=== PATIENT | male | born 1955 | race Caucasian/White ===

== ENCOUNTER → 2018-04-01 | Outpatient (CLI) | payer OTHER ==
[~2018-04-01] MED LIST: LIDOCAINE-MPF 2%, 2ML ONE
== END | disposition home or self-care (01) ==
LOC: RAD 08:50
PROVIDERS: ATTEND Family Medicine
DX: E04.2 Nontoxic multinodular goiter (principal)
CPT/HCPCS: 76942; 88172; 88173; J3490

== ENCOUNTER → 2018-04-15 | Outpatient (CLI) | payer OTHER ==
[~2018-04-15] MED LIST changes: +ASCO-96 PO; +HYDR-3240 PO; +LEVO150T PO; -LIDOCAINE-MPF 2%, 2ML ONE; +MULT-658 PO; +TADA5TAB2 PO
== END | disposition home or self-care (01) ==
LOC: STAR 13:12
PROVIDERS: ATTEND Surgery
DX: R94.31 Abnormal electrocardiogram [ECG] [EKG] (principal)
CPT/HCPCS: 93005

== ENCOUNTER 2018-04-19 07:27 | Inpatient (IN) | payer OTHER ==
[~2018-04-19] VITALS: Ht 190.5 cm; Wt 80.7 kg
[~2018-04-19 07:27] MED LIST changes: +BUPIVACAINE/PF-EPI 0.5% 1:200K ONE; -HYDR-3240 PO; -LEVO150T PO
[2018-04-19] MEDS ORDERED: LACTATED RINGERS 1,000 ML IV SCH ×2 (08:15→08:29)
[2018-04-19] MEDS ORDERED: ACETAMINOPHEN 500 MG TABLET PO ONE (08:30)
[2018-04-19] MEDS ORDERED: ONDANSETRON ODT 8 MG PO ONE (08:30)
[2018-04-19] MEDS ORDERED: GABAPENTIN 300 MG CAPSULE PO ONE (08:30)
[2018-04-19 08:34] VITALS: BP 130/87
[2018-04-19] MEDS ORDERED: FENTANYL PF 250 MCG/5ML ONE (10:52)
[2018-04-19] MEDS ORDERED: MIDAZOLAM 1 MG/ML, 2ML ONE (10:52)
[2018-04-19] MEDS ORDERED: ROCURONIUM 10 MG/ML,10ML ONE (11:30)
[2018-04-19] MEDS ORDERED: PHENYLEPHRINE 10 MG/ML ONE (11:30)
[2018-04-19] MEDS ORDERED: CEFAZOLIN 1,000 MG ONE ×2 (11:30→12:14)
[2018-04-19] MEDS ORDERED: DEXAMETHASONE 4 MG/ML, 1ML ONE (12:14)
[2018-04-19] MEDS ORDERED: SUCCINYLCHOLINE 20 MG/ML, 10ML ONE (12:14)
[2018-04-19] MEDS ORDERED: PROPOFOL 10 MG/ML, 20ML ONE (12:14)
[2018-04-19] MEDS ORDERED: LIDOCAINE-MPF 2% ,5ML ONE (12:14)
[2018-04-19] MEDS ORDERED: PROMETHAZINE 12.5 MG SUPP PR PRN (12:30)
[2018-04-19] MEDS ORDERED: ONDANSETRON 2MG/ML, 2ML IV PRN (12:30)
[2018-04-19] MEDS ORDERED: OXYcodone 5 MG/5 ML ORAL.SOL UDC PO PRN (12:30)
[2018-04-19] MEDS ORDERED: EPHEDRINE 50 MG/ML, 1ML IM PRN (12:30)
[2018-04-19] MEDS ORDERED: SCOPOLAMINE PATCH, 1.5MG PATCH.TD72 TD PRN (12:30)
[2018-04-19] MEDS ORDERED: MIDAZOLAM 1 MG/ML, 2ML IV PRN (12:30)
[2018-04-19] MEDS ORDERED: ALBUTEROL/IPRATROPIUM 2.5MG/0.5MG, 3 ML NPPB PRN (12:30)
[2018-04-19] MEDS ORDERED: LABETALOL 5MG/ML, 20ML IV PRN (12:30)
[2018-04-19] MEDS ORDERED: MEPERIDINE/PF 25MG/0.5ML IVPush PRN (12:30)
[2018-04-19] MEDS ORDERED: EPHEDRINE 50 MG/ML, 1ML ONE (12:41)
[2018-04-19] MEDS ORDERED: LABETALOL 5MG/ML, 20ML ONE (13:45)
[2018-04-19] MEDS ORDERED: OXYcodone 5 MG/5 ML ORAL.SOL UDC ONE (14:38)
[2018-04-19] MEDS ORDERED: FENTANYL PF 100 MCG/2ML ONE (14:38)
[2018-04-19] MEDS: FENTANYL PF 100 MCG/2ML IV PRN ×4 (14:40→15:00)
[2018-04-19] MEDS ORDERED: HYDROmorphone 2 MG/ML, 1ML ONE (14:52)
[2018-04-19] MEDS: HYDROmorphone 1 MG/ML, 1ML IV PRN ×4 (15:05→15:23)
[2018-04-19 15:55] VITALS: BP 123/88
[2018-04-19] MEDS: LACTATED RINGERS 1,000 ML IV SCH ×2 (16:30→23:13)
[2018-04-19] MEDS ORDERED: hydrALAzine 20 MG/ML, 1ML IV PRN (16:30)
[2018-04-19] MEDS ORDERED: ACETAMINOPHEN 650 MG SUPP PR PRN (16:30)
[2018-04-19] MEDS ORDERED: ACETAMINOPHEN 325 MG TABLET PO PRN (16:30)
[2018-04-19 19:00] VITALS: BP 125/66
[2018-04-19] MEDS: CALCIUM/VITAMIN D3 250-125 TABLET PO SCH (21:11)
[2018-04-20 00:02] VITALS: BP 109/72
[2018-04-20 04:08] VITALS: BP 111/70
[2018-04-20 05:11] LABS: CALCIUM 8.1 mg/dL (8.5-10.1)
[2018-04-20] MEDS: HYDROcodone/APAP 5/325 TABLET PO PRN ×2 (06:15→10:07)
[2018-04-20 06:48] VITALS: BP 123/73
[2018-04-20] MEDS: CALCIUM/VITAMIN D3 250-125 TABLET PO SCH (08:16)
[2018-04-20] MEDS ORDERED: TADALAFIL 5 MG HOMEMEDPO SCH (09:00)
[2018-04-20] MEDS ORDERED: HYDR-3240 PO (09:44)
[2018-04-20] MEDS ORDERED: LEVO150T PO (09:45)
== END 2018-04-20 10:45 | disposition home or self-care (01) | DRG 627 ==
LOC: OUT 07:27 → 4NOR 15:49 → OUT 16:08
PROVIDERS: ADMIT Surgery; ATTEND Surgery
PROC: 0GTH0ZZ Resection of Right Thyroid Gland Lobe, Open Approach (ICD-10-PCS; 2018-04-19)
PROC: 0GTG0ZZ Resection of Left Thyroid Gland Lobe, Open Approach (ICD-10-PCS; 2018-04-19)
PROC: 0GSP0ZZ Reposition Left Inferior Parathyroid Gland, Open Approach (ICD-10-PCS; 2018-04-19)
PROC: 07T10ZZ Resection of Right Neck Lymphatic, Open Approach (ICD-10-PCS; 2018-04-19)
PROC: 0GTJ0ZZ Resection of Thyroid Gland Isthmus, Open Approach (ICD-10-PCS; principal; 2018-04-19 11:45)
DX: C73 Malignant neoplasm of thyroid gland (principal)
CPT/HCPCS: 36415; 82310; 83970; 86850; 86900; 88305; 88307; 88331; J0690; J1100; J1170; J2250; J2704; J3010; J3490; Q0162; C1760; J0330; J2370; J7120

== ENCOUNTER → 2018-06-02 | Outpatient (CLI) | payer OTHER ==
[~2018-06-02] MED LIST changes: -BUPIVACAINE/PF-EPI 0.5% 1:200K ONE; +HYDR-3240 PO; +LEVO150T PO
== END | disposition home or self-care (01) ==
LOC: RAD 15:06
PROVIDERS: ATTEND Internal Medicine Endocrinology, Diabetes & Metabolism
DX: Q32.1 Other congenital malformations of trachea (principal); M79.89 Other specified soft tissue disorders
CPT/HCPCS: 70490

== ENCOUNTER → 2018-06-10 | Outpatient (CLI) | payer OTHER | END | disposition home or self-care (01) | LOC: PETCFH 11:26 | PROVIDERS: ATTEND Surgery | DX: C79.51 Secondary malignant neoplasm of bone (principal); C73 Malignant neoplasm of thyroid gland; E04.2 Nontoxic multinodular goiter | CPT/HCPCS: 78815; A9552 ==

== ENCOUNTER 2018-10-04 15:43 | Inpatient (IN) | payer OTHER ==
[~2018-10-04] VITALS: Ht 190.5 cm; Wt 83.5 kg
[~2018-10-04 15:43] MED LIST changes: -OMNIPAQUE 350 MG/ML, 150 ML BOTTLE ONE
--- NOTE | 2018-10-04 15:50 | NUR ---
PT IS HYPOTENSIVE, DR HENNESSY NOTIFIED. FLUIDS STARTED
[2018-10-04] MEDS ORDERED: ONDANSETRON 2MG/ML, 2ML ONE (16:15)
[2018-10-04 16:26] LABS: MEAN CORPUSCULAR HEMOGLOBIN 29.5 pg (27.5-34.5); MEAN CORPUSCULAR HGB CONC 33.4 g/dL (33.2-36.2); MEAN CORPUSCULAR VOLUME 88.4 fL (81-97); MEAN PLATELET VOLUME 7.7 fL (7.4-10.4); PLATELET COUNT 136 x10^3/uL (130-400); RED BLOOD COUNT 4.46 x10^6/uL (4.38-5.82); RED CELL DISTRIBUTION WIDTH 15.6 % (9.4-14.8)
[2018-10-04] MEDS ORDERED: SODIUM CHLORIDE FLUSH 10ML SYR IVF ONE (16:30)
[2018-10-04] MEDS ORDERED: ONDANSETRON 2MG/ML, 2ML IVPush ONE (16:30)
[2018-10-04] MEDS ORDERED: SODIUM CHLORIDE 0.9% 1,000ML IVBOLUS ONE ×3 (16:30→19:00)
[2018-10-04 16:39] LABS: ALANINE AMINOTRANSFERASE 18 U/L (12-78); ALBUMIN 2.9 g/dL (3.4-5.0); ANION GAP 10 mmol/L (5-15); CALCIUM 7.6 mg/dL (8.5-10.1); CHLORIDE 105 mmol/L (98-107); CREATININE 1.47 mg/dL (0.7-1.3)
[2018-10-04 16:41] LABS: ALKALINE PHOSPHATASE 66 U/L (45-117); BILIRUBIN,TOTAL 0.8 mg/dL (0.2-1.0); TOTAL PROTEIN 5.8 g/dL (6.4-8.2)
[2018-10-04 16:58] LABS: MD YES
[2018-10-04] MEDS ORDERED: CEFTRIAXONE PMX 1GM/50ML 50 ML IVPB ONE (17:00)
[2018-10-04 17:02] LABS: ANISOCYTOSIS 1+; BANDS%(MANUAL) 20 % (0-7); MONOS#(MANUAL) 0.06 x10^3/uL (0.3-2.7); MONOS% (MANUAL) 2 % (2-9); SEG#(MANUAL) 2.34 x10^3/uL (1.8-6.8); SEGS% (MANUAL) 78 % (42-75)
[2018-10-04 17:03] LABS: <PLATELET ESTIMATE> ADEQUATE; LARGE PLATELETS 1+; PMNS WITH VACUOLES 1+
[2018-10-04] MEDS ORDERED: CEFTRIAXONE PMX 1GM/50ML 50 ML ONE (17:17)
--- NOTE | 2018-10-04 17:24 | NUR ---
ABX STARTED AFTER BLOOD CULTURES DRAWN
--- NOTE | 2018-10-04 17:25 | NUR ---
PT NOTIFIED THAT WE NEED A URINE SAMPLE. PT UNABLE TO VOID ATT.
--- NOTE | 2018-10-04 17:41 | NUR ---
DR HENNESSY AT BEDSIDE UPDATING PT ON POC
[2018-10-04] MEDS ORDERED: SODIUM CHLORIDE 0.9% 1,000 ML IV ONE (18:02)
[2018-10-04] MEDS ORDERED: NOREPINEPHRINE 4 MG in SODIUM CHLORIDE 0.9% 246 ML IV PRN (18:53)
[2018-10-04] MEDS ORDERED: ACETAMINOPHEN 650 MG SUPP PR PRN (19:00)
[2018-10-04] MEDS ORDERED: SODIUM CHLORIDE 0.9%, 500ML IVBOLUS PRN (19:00)
[2018-10-04] MEDS ORDERED: HYDROCORTISONE 100 MG INJ. IVPush ONE (19:00)
[2018-10-04] MEDS ORDERED: ONDANSETRON 2MG/ML, 2ML IVPB PRN (19:00)
[2018-10-04] MEDS ORDERED: ACETAMINOPHEN 650 MG/20.3 ML UDC PO PRN (19:00)
[2018-10-04] MEDS ORDERED: HYDROCORTISONE 100 MG INJ. IV SCH (19:00)
[2018-10-04] MEDS ORDERED: PHARMACY MAY ADJ FOR RENAL FX MC PRN (19:00)
--- NOTE | 2018-10-04 19:05 | NUR ---
REPORT FROM PIEDAD HERNANDEZ. PT MOVED TO T4 FOR CENTRAL LINE PLACEMENT. ERP AT BEDSIDE TO UPDATE PT ON POC. PT DEMONSTRATES UNDERSTANDING. CONSENT SIGNED FOR CENTRAL LINE.
--- NOTE | 2018-10-04 19:13 | NUR ---
brother julius [phone]
[2018-10-04] MEDS ORDERED: HYDROcodone/APAP 5/325 TABLET PO PRN (19:30)
[2018-10-04] MEDS ORDERED: ACETAMINOPHEN 500 MG TABLET ONE (19:42)
--- NOTE | 2018-10-04 19:45 | NUR ---
PT FEBRILE. MEDICATED PER VERBAL ORDER W/ 1G TYLENOL FROM DR ARELLANO. REPORT TO JUAN HERBERT IN CCU
[2018-10-04 19:52] LABS: MEAN CORPUSCULAR HEMOGLOBIN 30.4 pg (27.5-34.5); MEAN CORPUSCULAR HGB CONC 34.8 g/dL (33.2-36.2); MEAN CORPUSCULAR VOLUME 87.6 fL (81-97); MEAN PLATELET VOLUME 7.8 fL (7.4-10.4); PLATELET COUNT 141 x10^3/uL (130-400); RED BLOOD COUNT 4.01 x10^6/uL (4.38-5.82); RED CELL DISTRIBUTION WIDTH 15.4 % (9.4-14.8)
--- NOTE | 2018-10-04 19:54 | NUR ---
CENTRAL LINE PLACEMENT CONFIRMED. LEVOPHED HUNG
[2018-10-04] MEDS ORDERED: ACETAMINOPHEN 500 MG TABLET PO ONE (20:00)
[2018-10-04 20:03] LABS: ALANINE AMINOTRANSFERASE 16 U/L (12-78); ALBUMIN 2.2 g/dL (3.4-5.0); ANION GAP 8 mmol/L (5-15); CALCIUM 6.7 mg/dL (8.5-10.1); CHLORIDE 112 mmol/L (98-107); CREATININE 1.67 mg/dL (0.7-1.3)
[2018-10-04 20:06] LABS: ALKALINE PHOSPHATASE 44 U/L (45-117); BILIRUBIN,TOTAL 0.5 mg/dL (0.2-1.0); MD YES; TOTAL PROTEIN 4.7 g/dL (6.4-8.2)
[2018-10-04 20:10] LABS: <PLATELET ESTIMATE> ADEQUATE; ANISOCYTOSIS 1+; BAND#(MANUAL) 1.94 x10^3/uL; BANDS%(MANUAL) 27 % (0-7); PMNS WITH VACUOLES 1+; SEG#(MANUAL) 5.26 x10^3/uL (1.8-6.8); SEGS% (MANUAL) 73 % (42-75)
[2018-10-04 20:11] LABS: <PLT MORPHOLOGY> NORMAL PLT MORPH
[2018-10-04] MEDS: PIPERACILLIN/TAZO/PMX 4.5GM 50 ML IVPB SCH (20:59)
[2018-10-04] MEDS: ENOXAPARIN 40 MG/0.4 ML SQ SCH (20:59)
[2018-10-04 21:00] VITALS: BP 96/43
[2018-10-04] MEDS ORDERED: LEVOTHYROXINE 150 MCG TABLET ONE (21:32)
[2018-10-04] MEDS ORDERED: CHOLECALCIFEROL 1,000 UNIT TABLET ONE (21:33)
[2018-10-04] MEDS: LEVOTHYROXINE 150 MCG TABLET PO SCH (21:34)
[2018-10-04] MEDS: CALCIUM CARBONATE 500 MG TABLET PO SCH (21:34)
[2018-10-04] MEDS: SODIUM CHLORIDE 0.9%, 500ML IVBOLUS PRN ×3 (21:41→23:19)
[2018-10-04] MEDS: NOREPINEPHRINE 8 MG in SODIUM CHLORIDE 0.9% 242 ML IV PRN (23:19)
[2018-10-05] MEDS ORDERED: HYDROCORTISONE 100 MG INJ. IV SCH (03:00)
[2018-10-05] MEDS: PIPERACILLIN/TAZO/PMX 4.5GM 50 ML IVPB SCH (03:46)
[2018-10-05 04:00] VITALS: BP 128/67
[2018-10-05 05:14] LABS: MEAN CORPUSCULAR HEMOGLOBIN 30.3 pg (27.5-34.5); MEAN CORPUSCULAR HGB CONC 34.3 g/dL (33.2-36.2); MEAN CORPUSCULAR VOLUME 88.3 fL (81-97); MEAN PLATELET VOLUME 8.4 fL (7.4-10.4); PLATELET COUNT 170 x10^3/uL (130-400); RED BLOOD COUNT 4.46 x10^6/uL (4.38-5.82); RED CELL DISTRIBUTION WIDTH 15.2 % (9.4-14.8)
[2018-10-05 05:31] LABS: ALANINE AMINOTRANSFERASE 19 U/L (12-78); ALBUMIN 2.1 g/dL (3.4-5.0); ANION GAP 9 mmol/L (5-15); CALCIUM 6.2 mg/dL (8.5-10.1); CHLORIDE 108 mmol/L (98-107); CREATININE 2.02 mg/dL (0.7-1.3)
[2018-10-05 05:33] LABS: ALKALINE PHOSPHATASE 43 U/L (45-117); BILIRUBIN,TOTAL 0.7 mg/dL (0.2-1.0); TOTAL PROTEIN 4.9 g/dL (6.4-8.2)
[2018-10-05 05:39] LABS: MD YES
[2018-10-05 05:40] LABS: BANDS%(MANUAL) 24 % (0-7); LYMPH#(MANUAL) 0.18 x10^3/uL (1-3.4); LYMPHS% (MANUAL) 1 % (22-44); MONOS#(MANUAL) 0.18 x10^3/uL (0.3-2.7); MONOS% (MANUAL) 1 % (2-9); SEG#(MANUAL) 12.95 x10^3/uL (1.8-6.8); SEGS% (MANUAL) 74 % (42-75)
[2018-10-05 05:41] LABS: ANISOCYTOSIS 1+; PMNS WITH VACUOLES 1+
[2018-10-05 05:42] LABS: <PLATELET ESTIMATE> ADEQUATE; <PLT MORPHOLOGY> NORMAL PLT MORPH
[2018-10-05] MEDS: NOREPINEPHRINE 8 MG in SODIUM CHLORIDE 0.9% 242 ML IV PRN (06:04)
[2018-10-05] MEDS: LEVOTHYROXINE 150 MCG TABLET PO SCH (06:07)
[2018-10-05 06:45] LABS: CULTURE INDICATED? YES; MICROSCOPIC INDICATED
[2018-10-05] MEDS ORDERED: MAGNESIUM SULFATE PMX 4GM/100M 100 ML IVPB ONE (07:30)
[2018-10-05] MEDS: PIPERACILLIN/TAZO 3.375 GM in DEXTROSE 5% 50 ML IVPB SCH ×3 (07:55→19:49)
[2018-10-05] MEDS ORDERED: CALCIUM CHLORIDE 13.6 MEQ in SODIUM CHLORIDE 0.9% 100 ML IV ONE (09:00)
[2018-10-05] MEDS ORDERED: CHOLECALCIFEROL 1,000 UNIT TABLET PO SCH (09:00)
[2018-10-05] MEDS ORDERED: TEMPLATE NON-FORMULARY MED. (Tadalafil** (Cialis**) 5 MG) PO SCH (09:00)
[2018-10-05] MEDS: CALCIUM CARBONATE 500 MG TABLET PO SCH ×2 (09:04→21:35)
[2018-10-05] MEDS: MULTIVITAMIN 1 TABLET PO SCH (09:04)
[2018-10-05 09:27] LABS: FREE T4 (FREE THYROXINE) 1.63 ng/dL (0.76-1.46)
[2018-10-05] MEDS: LIOTHYRONINE 5 MCG TABLET PO SCH (10:41)
[2018-10-05] MEDS ORDERED: SODIUM CHLORIDE 0.9% 1,000 ML IV SCH (11:30)
[2018-10-05] MEDS: SODIUM CHLORIDE 0.9% 1,000 ML IV SCH ×2 (11:30→19:49)
--- NOTE | 2018-10-05 16:36 | NUR ---
INFRASTRUCTURE DEVELOPER recommend: Regular/ thins _use of chin tuck and double swallow Addendum: 10/05/18 at 1637 by CAROLE MACIEL Amended: Links added.
[2018-10-05] MEDS: OXYcodone IR 5MG TABLET PO PRN ×2 (21:35)
[2018-10-05] MEDS: ENOXAPARIN 40 MG/0.4 ML SQ SCH (21:35)
[2018-10-06] MEDS: PIPERACILLIN/TAZO 3.375 GM in DEXTROSE 5% 50 ML IVPB SCH ×4 (01:56→20:24)
[2018-10-06 04:00] VITALS: BP 105/63
[2018-10-06] MEDS: SODIUM CHLORIDE 0.9% 1,000 ML IV SCH (05:04)
[2018-10-06 05:39] LABS: ANION GAP 8 mmol/L (5-15); CALCIUM 7.2 mg/dL (8.5-10.1); CHLORIDE 107 mmol/L (98-107)
[2018-10-06] MEDS: LEVOTHYROXINE 150 MCG TABLET PO SCH (06:09)
[2018-10-06] MEDS ORDERED: ERGOCALCIFEROL 50,000 UNIT CAPSULE PO SCH (07:30)
[2018-10-06] MEDS: CALCIUM CARBONATE 500 MG TABLET PO SCH ×2 (07:42→20:26)
[2018-10-06] MEDS: MULTIVITAMIN 1 TABLET PO SCH (07:42)
[2018-10-06] MEDS: LIOTHYRONINE 5 MCG TABLET PO SCH (07:42)
[2018-10-06 08:25] LABS: MEAN CORPUSCULAR HEMOGLOBIN 29.2 pg (27.5-34.5); MEAN CORPUSCULAR HGB CONC 33.1 g/dL (33.2-36.2); MEAN CORPUSCULAR VOLUME 88.1 fL (81-97); MEAN PLATELET VOLUME 8.8 fL (7.4-10.4); PLATELET COUNT 92 x10^3/uL (130-400); RED BLOOD COUNT 4.05 x10^6/uL (4.38-5.82); RED CELL DISTRIBUTION WIDTH 15.5 % (9.4-14.8)
[2018-10-06 09:00] LABS: MD YES
[2018-10-06 09:08] LABS: ANISOCYTOSIS 1+; BAND#(MANUAL) 0.36 x10^3/uL; BANDS%(MANUAL) 8 % (0-7); LYMPH#(MANUAL) 0.32 x10^3/uL (1-3.4); LYMPHS% (MANUAL) 7 % (22-44); MONOS#(MANUAL) 0.36 x10^3/uL (0.3-2.7); MONOS% (MANUAL) 8 % (2-9); SEG#(MANUAL) 3.47 x10^3/uL (1.8-6.8); SEGS% (MANUAL) 77 % (42-75)
[2018-10-06 09:09] VITALS: BP 118/71
[2018-10-06 09:09] LABS: <PLATELET ESTIMATE> DECREASED; <PLT MORPHOLOGY> NORMAL PLT MORPH
[2018-10-06 13:22] VITALS: BP 112/70
[2018-10-06] MEDS: OXYcodone IR 5MG TABLET PO PRN ×2 (16:18→21:56)
[2018-10-06 18:59] VITALS: BP 107/64
[2018-10-06] MEDS: ENOXAPARIN 40 MG/0.4 ML SQ SCH (20:26)
[2018-10-06] MEDS: MORPHINE SULFATE 4 MG/ML, 1ML IV PRN ×4 (20:35→21:56)
[2018-10-07 01:51] VITALS: BP 104/68
[2018-10-07] MEDS: PIPERACILLIN/TAZO 3.375 GM in DEXTROSE 5% 50 ML IVPB SCH ×2 (02:17→08:26)
[2018-10-07] MEDS: MORPHINE SULFATE 4 MG/ML, 1ML IV PRN (02:22)
[2018-10-07] MEDS: MULTIVITAMIN 1 TABLET PO SCH (08:26)
[2018-10-07] MEDS: CALCIUM CARBONATE 500 MG TABLET PO SCH (08:26)
[2018-10-07] MEDS: LIOTHYRONINE 5 MCG TABLET PO SCH (08:26)
[2018-10-07 09:55] VITALS: BP 107/67
[2018-10-07] MEDS ORDERED: OXYC5TAB3 PO (12:05)
[2018-10-07] MEDS ORDERED: AMOX1TAB64 PO (12:06)
== END 2018-10-07 13:42 | disposition home or self-care (01) | DRG 871 ==
LOC: ED 18:21 → SUATTDRO 18:29 → EDIP 18:53 → CCU 20:06 → 3NW 10-06 09:01 → DCLOUNGE 10-07 13:30
PROVIDERS: ADMIT Hospitalist; ATTEND Hospitalist
PROC: 02HV33Z Insertion of Infusion Device into Superior Vena Cava, Percutaneous Approach (ICD-10-PCS; principal; 2018-10-04)
DX: A41.9 Sepsis, unspecified organism (principal); N17.0 Acute kidney failure with tubular necrosis; R65.21 Severe sepsis with septic shock; E43 Unspecified severe protein-calorie malnutrition; E87.2 Acidosis; R13.10 Dysphagia, unspecified; I10 Essential (primary) hypertension; E83.42 Hypomagnesemia; E20.9 Hypoparathyroidism, unspecified; C73 Malignant neoplasm of thyroid gland; Z60.2 Problems related to living alone; E89.0 Postprocedural hypothyroidism; Z87.891 Personal history of nicotine dependence; Z85.850 Personal history of malignant neoplasm of thyroid; Z92.21 Personal history of antineoplastic chemotherapy; Z68.23 Body mass index [BMI] 23.0-23.9, adult
CPT/HCPCS: 36415; 36569; 36600; 71045; 80048; 80053; 81001; 82306; 82330; 82533; 82803; 83605; 83735; 83970; 84100; 84145; 84439; 84443; 84481; 85025; 87040; 87081; 87086; 96365; 96366; 96375; G0378; J0696; J1650; J2405; J2543; J1720; J3475; J7030; J7040; J7050

== ENCOUNTER → 2018-10-04 | Outpatient (CLI) | payer OTHER ==
[~2018-10-04] MED LIST changes: +OMNIPAQUE 350 MG/ML, 150 ML BOTTLE ONE
== END | disposition home or self-care (01) ==
LOC: CFH 08:36
PROVIDERS: ATTEND Internal Medicine Hematology & Oncology
DX: J98.4 Other disorders of lung (principal); R22.1 Localized swelling, mass and lump, neck; C73 Malignant neoplasm of thyroid gland; M47.812 Spondylosis without myelopathy or radiculopathy, cervical region; M51.34 Other intervertebral disc degeneration, thoracic region
CPT/HCPCS: 70491; 71260; Q9967

== ENCOUNTER 2018-12-29 13:59 | Inpatient (IN) | payer OTHER ==
[~2018-12-29] VITALS: Ht 190.5 cm; Wt 83.2 kg
[~2018-12-29 13:59] MED LIST changes: -CALCIUM PO; -DABR75CA PO; -DEXA4TAB66 PO; -IBUP-1221 PO; -MORP60CA17 PO; -OMNIPAQUE 350 MG/ML, 150 ML BOTTLE ONE
[2018-12-29] MEDS ORDERED: ACETAMINOPHEN 500 MG TABLET ONE (14:29)
[2018-12-29] MEDS ORDERED: ONDANSETRON 2MG/ML, 2ML ONE (14:29)
[2018-12-29] MEDS ORDERED: ONDANSETRON 2MG/ML, 2ML IVPush ONE ×3 (14:30→15:00)
[2018-12-29] MEDS ORDERED: SODIUM CHLORIDE FLUSH 10ML SYR IVF ONE (14:30)
--- NOTE | 2018-12-29 14:33 | NUR ---
PATIENT WITH CONTINUOUS MONITORING. 2 LARGE BORE IV PLACED. BLOOD CULTURES DRAWN. ZOFRAN ADMINISTERED PER VERBAL ORDER. DR. HENNESSY
--- NOTE | 2018-12-29 14:36 | NUR ---
ED MD INTO ASSESS. IVF RUNNING AT THIS TIME. PATIENT ON CONTINUOUS MONITORING, AOX4. PATIENT HYPOTENSIVE. EKG COMPLETE. PATIENT STATES DNR AND DNI AT THIS TIME.
[2018-12-29 14:52] LABS: MEAN CORPUSCULAR HEMOGLOBIN 29.1 pg (27.5-34.5); MEAN CORPUSCULAR HGB CONC 33.7 g/dL (33.2-36.2); MEAN CORPUSCULAR VOLUME 86.5 fL (81-97); MEAN PLATELET VOLUME 7.6 fL (7.4-10.4); PLATELET COUNT 184 x10^3/uL (130-400); RED BLOOD COUNT 4.92 x10^6/uL (4.38-5.82); RED CELL DISTRIBUTION WIDTH 13.9 % (9.4-14.8)
[2018-12-29] MEDS ORDERED: PIPERACILLIN/TAZO/PMX 3.375GM 50 ML ONE (14:53)
[2018-12-29] MEDS ORDERED: SODIUM CHLORIDE 0.9% 1,000ML IVBOLUS ONE (15:00)
[2018-12-29] MEDS ORDERED: VANCOMYCIN PER PHARMACY MC ONE (15:00)
[2018-12-29] MEDS ORDERED: ACETAMINOPHEN 500 MG TABLET PO ONE (15:00)
[2018-12-29] MEDS ORDERED: PIPERACILLIN/TAZO/PMX 3.375GM 50 ML IV ONE (15:00)
[2018-12-29 15:02] LABS: ALANINE AMINOTRANSFERASE 19 U/L (12-78); ALBUMIN 3.5 g/dL (3.4-5.0); ANION GAP 12 mmol/L (5-15); CALCIUM 8.6 mg/dL (8.5-10.1); CHLORIDE 105 mmol/L (98-107); CREATININE 1.35 mg/dL (0.7-1.3)
[2018-12-29 15:04] LABS: ALKALINE PHOSPHATASE 82 U/L (45-117); BILIRUBIN,TOTAL 1.2 mg/dL (0.2-1.0); TOTAL PROTEIN 6.7 g/dL (6.4-8.2)
--- NOTE | 2018-12-29 15:05 | NUR ---
IV BOLUS COMPLETE, VS NOTED. PT STATES HE IS STARTING TO FEEL "A LITTLE BETTER", NO LONGER CYANOTIC AROUND LIPS.
--- NOTE | 2018-12-29 15:15 | NUR ---
PT COLOR CONTINUES TO IMPROVE. NOTED ERYTHEMA TO UPPER CHEST AND NECK; PT STATES THIS IS SECONDARY TO RADIATION TREATMENT.
[2018-12-29 15:23] LABS: MD YES
[2018-12-29 15:27] LABS: <PLATELET ESTIMATE> ADEQUATE; <PLT MORPHOLOGY> NORMAL PLT MORPH; <RBC MORPHOLOGY> NORMAL; BAND#(MANUAL) 0.44 x10^3/uL; BANDS%(MANUAL) 13 % (0-7); LYMPH#(MANUAL) 0.03 x10^3/uL (1-3.4); LYMPHS% (MANUAL) 1 % (22-44); MONOS#(MANUAL) 0.07 x10^3/uL (0.3-2.7); MONOS% (MANUAL) 2 % (2-9); SEG#(MANUAL) 2.86 x10^3/uL (1.8-6.8); SEGS% (MANUAL) 84 % (42-75)
[2018-12-29] MEDS ORDERED: VANCOMYCIN 1,600 MG in SODIUM CHLORIDE 0.9% 250 ML IV ONE (15:30)
[2018-12-29] MEDS ORDERED: SODIUM CHLORIDE 0.9%, 500ML IVBOLUS ONE (15:30)
--- NOTE | 2018-12-29 15:30 | NUR ---
BLOOD PRESSURES DECREASING SLOWLY, DR HEARN AWARE. PT WOULD LIKE TO AVOID CENTRAL LINE PLACEMENT. MANUAL BP REQUESTED TO CONFIRM.
--- NOTE | 2018-12-29 15:45 | NUR ---
MANUAL BP'S CONSISTENT WITH AUTOMATIC BP'S. PT VERBALIZES UNDERSTANDING OF NEED FOR CENTRAL LINE PLACEMENT FOR BP SUPPORT. PT OTHERWISE HAS IMPROVING COLOR AND MENTATION, BUT NOTED RETURN OF NAUSEA WITH BP'S DOWN TO 70'S/30'S.
--- NOTE | 2018-12-29 16:10 | NUR ---
PT PREPARED FOR CENTRAL LINE PLACEMENT. PT REMAINS A & O X 4.
[2018-12-29] MEDS ORDERED: NOREPINEPHRINE 4 MG in SODIUM CHLORIDE 0.9% 246 ML IV PRN ×2 (16:30→18:30)
--- NOTE | 2018-12-29 16:30 | NUR ---
DR HEARN UNABLE TO PLACE CENTRAL LINE TO RIGHT IJ DUE TO TUMOR; LEFT NOT ATTEMPTED DUE TO ANATOMICAL CONCERNS. DR. HEARN VISUALIZING FEMORAL VESSELS WITH ULTRASOUND WHEN PT ASKS "IS THIS REALLY NECESSARY?" DR HEARN DISCUSSED RISKS AND BENEFITS OF FEMORAL LINE PLACEMENT, VS PICC PLACEMENT, VS NO CENTRAL LINE. PT CONSENTS TO PICC PLACEMENT. LEVOPHED TO BE STARTED VIA PERIPHERAL IV PENDING CENTRAL LINE PLACEMENT.
[2018-12-29] MEDS ORDERED: CALCIUM PO (17:02)
[2018-12-29] MEDS ORDERED: MORP60CA17 PO (17:02)
[2018-12-29] MEDS ORDERED: DABR75CA PO (17:02)
[2018-12-29] MEDS ORDERED: DEXA4TAB66 PO (17:02)
[2018-12-29] MEDS ORDERED: IBUP-1221 PO (17:02)
--- NOTE | 2018-12-29 17:10 | NUR ---
PICC PLACEMENT COMPLETED BY DR VILLA. PT TOLERATED PROCEDURE WELL. LEVOPHED CONTINUES TITRATING UP; LAST BP 90/46 WITH LEVOPHED AT 14 HAYLIE/MIN.
--- NOTE | 2018-12-29 17:16 | NUR ---
PT ALLOWED TO HAVE COLA PER DR. HEARN. REPORT TO XAVIER IN CCU. PT PREPARED FOR TRANSFER.
[2018-12-29 17:33] VITALS: BP 94/53
[2018-12-29 17:45] VITALS: BP 94/53
[2018-12-29] MEDS ORDERED: ACETAMINOPHEN 325 MG TABLET PO PRN (18:00)
[2018-12-29] MEDS ORDERED: ONDANSETRON 2MG/ML, 2ML IVPush PRN (18:00)
[2018-12-29] MEDS ORDERED: VANCOMYCIN PER PHARMACY MC PRN (18:30)
[2018-12-29] MEDS: SODIUM CHLORIDE 0.9% 1,000 ML IV SCH (18:34)
[2018-12-29] MEDS: morphine SULFATE 10 MG/ML, 1ML IVPush PRN (18:35)
[2018-12-29] MEDS: HYDROCORTISONE 100 MG INJ. IVPush SCH (18:37)
[2018-12-29] MEDS: ENOXAPARIN 40 MG/0.4 ML SQ SCH (18:40)
[2018-12-29] MEDS ORDERED: PHARMACOKINETIC MONITORING MC PRN (19:00)
[2018-12-29] MEDS: morphine SULFATE 60 MG TABLET.ER PO SCH (20:06)
[2018-12-29] MEDS ORDERED: NOREPINEPHRINE 1 MG/ML, 4ML ONE (20:46)
[2018-12-29] MEDS ORDERED: DEXAMETHASONE 4 MG TABLET PO SCH (21:00)
[2018-12-29] MEDS: PIPERACILLIN/TAZO/PMX 3.375GM 50 ML IV SCH (21:43)
[2018-12-30] MEDS: SODIUM CHLORIDE 0.9% 1,000 ML IV SCH ×3 (00:46→18:12)
[2018-12-30] MEDS: HYDROCORTISONE 100 MG INJ. IVPush SCH ×4 (00:46→18:12)
[2018-12-30] MEDS: morphine SULFATE 10 MG/ML, 1ML IVPush PRN (02:54)
[2018-12-30] MEDS: PIPERACILLIN/TAZO/PMX 3.375GM 50 ML IV SCH ×4 (05:05→21:01)
[2018-12-30 06:00] LABS: MEAN CORPUSCULAR HEMOGLOBIN 30.2 pg (27.5-34.5); MEAN CORPUSCULAR HGB CONC 34.5 g/dL (33.2-36.2); MEAN CORPUSCULAR VOLUME 87.5 fL (81-97); MEAN PLATELET VOLUME 8.6 fL (7.4-10.4); PLATELET COUNT 139 x10^3/uL (130-400); RED BLOOD COUNT 4.02 x10^6/uL (4.38-5.82); RED CELL DISTRIBUTION WIDTH 13.9 % (9.4-14.8)
[2018-12-30 06:11] LABS: CHLORIDE 108 mmol/L (98-107)
[2018-12-30 06:33] LABS: ALANINE AMINOTRANSFERASE 15 U/L (12-78); ALBUMIN 2.2 g/dL (3.4-5.0); ALKALINE PHOSPHATASE 41 U/L (45-117); ANION GAP 10 mmol/L (5-15); BILIRUBIN,TOTAL 0.8 mg/dL (0.2-1.0); CALCIUM 6.7 mg/dL (8.5-10.1); CREATININE 1.36 mg/dL (0.7-1.3); MD YES; THYROID STIMULATING HORMONE 0.207 mIU/L (0.358-3.740); TOTAL PROTEIN 4.7 g/dL (6.4-8.2)
[2018-12-30 06:37] LABS: <RBC MORPHOLOGY> NORMAL; BANDS%(MANUAL) 16 % (0-7); LYMPH#(MANUAL) 0.12 x10^3/uL (1-3.4); LYMPHS% (MANUAL) 1 % (22-44); MONOS#(MANUAL) 0.48 x10^3/uL (0.3-2.7); MONOS% (MANUAL) 4 % (2-9); SEGS% (MANUAL) 79 % (42-75)
[2018-12-30 06:38] LABS: <PLATELET ESTIMATE> ADEQUATE; <PLT MORPHOLOGY> NORMAL PLT MORPH
[2018-12-30] MEDS: morphine SULFATE 60 MG TABLET.ER PO SCH ×2 (08:37→21:01)
[2018-12-30] MEDS: VANCOMYCIN 1,600 MG in SODIUM CHLORIDE 0.9% 250 ML IV SCH (09:43)
[2018-12-30] MEDS ORDERED: LEVOTHYROXINE 150 MCG TABLET PO ONE (12:30)
[2018-12-30 17:34] LABS: MICROSCOPIC NOT IND
[2018-12-30 17:37] LABS: CULTURE INDICATED? NO
[2018-12-30] MEDS: ENOXAPARIN 40 MG/0.4 ML SQ SCH (18:12)
[2018-12-31] MEDS: HYDROCORTISONE 100 MG INJ. IVPush SCH ×4 (00:07→18:09)
[2018-12-31] MEDS: SODIUM CHLORIDE 0.9% 1,000 ML IV SCH ×2 (01:09→09:10)
[2018-12-31] MEDS: PIPERACILLIN/TAZO/PMX 3.375GM 50 ML IV SCH ×4 (03:02→21:12)
[2018-12-31] MEDS: VANCOMYCIN 1,600 MG in SODIUM CHLORIDE 0.9% 250 ML IV SCH ×2 (04:01→21:48)
[2018-12-31] MEDS: LEVOTHYROXINE 150 MCG TABLET PO SCH (04:48)
[2018-12-31] MEDS: morphine SULFATE 60 MG TABLET.ER PO SCH ×2 (08:17→21:00)
[2018-12-31 10:33] VITALS: BP 108/67
[2018-12-31 11:40] LABS: BASOPHILS # (AUTO) 0.02 x10^3/uL (0-0.1); BASOPHILS % (AUTO) 0 % (0-1); EOSINOPHILS % (AUTO) 0 % (1-7); LYMPHOCYTES # (AUTO) 0.46 x10^3/uL (1-3.4); LYMPHOCYTES % (AUTO) 4 % (22-44); MD NO; MEAN CORPUSCULAR VOLUME 88.2 fL (81-97); MEAN PLATELET VOLUME 8.1 fL (7.4-10.4); MONOCYTES # (AUTO) 0.36 x10^3/uL (0.2-0.8); MONOCYTES % (AUTO) 3 % (2-9); NEUTROPHILS % (AUTO) 92 % (42-75); PLATELET COUNT 148 x10^3/uL (130-400); RED BLOOD COUNT 4.04 x10^6/uL (4.38-5.82); RED CELL DISTRIBUTION WIDTH 13.9 % (9.4-14.8)
[2018-12-31 11:51] LABS: ANION GAP 3 mmol/L (5-15); CALCIUM 7.7 mg/dL (8.5-10.1); CHLORIDE 108 mmol/L (98-107); CREATININE 0.73 mg/dL (0.7-1.3)
[2018-12-31 14:18] VITALS: BP 109/70
[2018-12-31] MEDS: ENOXAPARIN 40 MG/0.4 ML SQ SCH (18:09)
[2018-12-31 19:59] VITALS: BP 131/75
[2019-01-01] MEDS: HYDROCORTISONE 100 MG INJ. IVPush SCH ×4 (00:32→18:15)
[2019-01-01 01:28] VITALS: BP 126/80
[2019-01-01] MEDS: PIPERACILLIN/TAZO/PMX 3.375GM 50 ML IV SCH ×4 (03:02→20:29)
[2019-01-01] MEDS: morphine SULFATE 10 MG/ML, 1ML IVPush PRN (03:12)
[2019-01-01] MEDS: LEVOTHYROXINE 150 MCG TABLET PO SCH (06:14)
[2019-01-01 06:50] LABS: BASOPHILS # (AUTO) 0.01 x10^3/uL (0-0.1); BASOPHILS % (AUTO) 0 % (0-1); EOSINOPHILS % (AUTO) 0 % (1-7); LYMPHOCYTES # (AUTO) 0.45 x10^3/uL (1-3.4); LYMPHOCYTES % (AUTO) 7 % (22-44); MD NO; MEAN CORPUSCULAR HEMOGLOBIN 29.9 pg (27.5-34.5); MEAN CORPUSCULAR HGB CONC 34.1 g/dL (33.2-36.2); MEAN CORPUSCULAR VOLUME 87.4 fL (81-97); MEAN PLATELET VOLUME 7.9 fL (7.4-10.4); MONOCYTES # (AUTO) 0.33 x10^3/uL (0.2-0.8); MONOCYTES % (AUTO) 5 % (2-9); NEUTROPHILS # (AUTO) 5.78 x10^3/uL (1.8-6.8); NEUTROPHILS % (AUTO) 88 % (42-75); PLATELET COUNT 127 x10^3/uL (130-400); RED BLOOD COUNT 3.83 x10^6/uL (4.38-5.82); RED CELL DISTRIBUTION WIDTH 13.2 % (9.4-14.8)
[2019-01-01 06:53] LABS: ALANINE AMINOTRANSFERASE 17 U/L (12-78); ALBUMIN 2.7 g/dL (3.4-5.0); CREATININE 0.83 mg/dL (0.7-1.3)
[2019-01-01 06:55] LABS: ALKALINE PHOSPHATASE 41 U/L (45-117); BILIRUBIN,TOTAL 0.4 mg/dL (0.2-1.0); TOTAL PROTEIN 5.6 g/dL (6.4-8.2)
[2019-01-01 07:08] LABS: ANION GAP 6 mmol/L (5-15); CHLORIDE 108 mmol/L (98-107)
[2019-01-01 07:41] VITALS: BP 127/75
[2019-01-01] MEDS ORDERED: POTASSIUM CHLORIDE 40 MEQ in SODIUM CHLORIDE 0.9% 100 ML IV ONE (08:00)
[2019-01-01] MEDS ORDERED: POLYETHYLENE GLYCOL 17 GM PACKET PO ONE (09:00)
[2019-01-01] MEDS: morphine SULFATE 60 MG TABLET.ER PO SCH ×2 (09:00→20:29)
[2019-01-01] MEDS: DOCUSATE 100 MG CAPSULE PO SCH ×2 (09:31→20:29)
[2019-01-01 12:16] VITALS: BP 115/69
[2019-01-01 16:34] LABS: VANCOMYCIN,TROUGH 5.4 mcg/mL (5.0-10.0)
[2019-01-01] MEDS ORDERED: MAGNESIUM SULFATE PMX 2GM/50ML 50 ML IV ONE (17:00)
[2019-01-01] MEDS ORDERED: POTASSIUM CHLORIDE 20 MEQ TAB.ER.PRT PO ONE (17:00)
[2019-01-01] MEDS: ENOXAPARIN 40 MG/0.4 ML SQ SCH (18:00)
[2019-01-01 20:19] VITALS: BP 121/76
[2019-01-01] MEDS: POLYETHYLENE GLYCOL 17 GM PACKET PO PRN (20:29)
[2019-01-02] MEDS ORDERED: POTASSIUM CHLORIDE 20 MEQ TAB.ER.PRT PO ONE
[2019-01-02] MEDS: HYDROCORTISONE 100 MG INJ. IVPush SCH ×2 (00:17→06:17)
[2019-01-02 01:04] VITALS: BP 128/72
[2019-01-02] MEDS: PIPERACILLIN/TAZO/PMX 3.375GM 50 ML IV SCH ×2 (03:34→09:46)
[2019-01-02] MEDS: LEVOTHYROXINE 150 MCG TABLET PO SCH (06:17)
[2019-01-02 06:23] LABS: BASOPHILS % (AUTO) 0 % (0-1); EOSINOPHILS % (AUTO) 0 % (1-7); LYMPHOCYTES # (AUTO) 0.61 x10^3/uL (1-3.4); LYMPHOCYTES % (AUTO) 10 % (22-44); MD NO; MEAN CORPUSCULAR HEMOGLOBIN 29.7 pg (27.5-34.5); MEAN CORPUSCULAR HGB CONC 34.2 g/dL (33.2-36.2); MEAN CORPUSCULAR VOLUME 86.8 fL (81-97); MEAN PLATELET VOLUME 8.1 fL (7.4-10.4); MONOCYTES # (AUTO) 0.36 x10^3/uL (0.2-0.8); MONOCYTES % (AUTO) 6 % (2-9); NEUTROPHILS # (AUTO) 5.32 x10^3/uL (1.8-6.8); NEUTROPHILS % (AUTO) 85 % (42-75); PLATELET COUNT 148 x10^3/uL (130-400); RED BLOOD COUNT 4.23 x10^6/uL (4.38-5.82); RED CELL DISTRIBUTION WIDTH 13.5 % (9.4-14.8)
[2019-01-02 06:29] LABS: ANION GAP 5 mmol/L (5-15); CALCIUM 7.8 mg/dL (8.5-10.1); CHLORIDE 105 mmol/L (98-107); CREATININE 0.86 mg/dL (0.7-1.3)
[2019-01-02 07:19] VITALS: BP 92/56
[2019-01-02] MEDS: DOCUSATE 100 MG CAPSULE PO SCH ×2 (09:47→20:46)
[2019-01-02] MEDS: POLYETHYLENE GLYCOL 17 GM PACKET PO PRN (09:53)
[2019-01-02] MEDS: morphine SULFATE 60 MG TABLET.ER PO SCH ×2 (09:54→20:47)
[2019-01-02] MEDS ORDERED: SENNA/DOCUSATE TABLET PO PRN (10:30)
[2019-01-02] MEDS: LEVOFLOXACIN 750 MG TABLET PO SCH (10:37)
[2019-01-02] MEDS: DEXAMETHASONE 4 MG TABLET PO SCH ×2 (10:40→20:46)
[2019-01-02 13:05] VITALS: BP 153/83
[2019-01-02] MEDS: ENOXAPARIN 40 MG/0.4 ML SQ SCH (17:51)
[2019-01-02 21:29] VITALS: BP 108/69
[2019-01-03 00:17] VITALS: BP 123/76
[2019-01-03] MEDS: LEVOTHYROXINE 150 MCG TABLET PO SCH (06:11)
[2019-01-03 07:30] VITALS: BP 131/77
[2019-01-03] MEDS: LEVOFLOXACIN 750 MG TABLET PO SCH (08:51)
[2019-01-03] MEDS: morphine SULFATE 60 MG TABLET.ER PO SCH ×2 (08:52→09:08)
[2019-01-03] MEDS: DEXAMETHASONE 4 MG TABLET PO SCH ×2 (08:52→18:08)
[2019-01-03] MEDS: DOCUSATE 100 MG CAPSULE PO SCH ×2 (08:52→21:00)
[2019-01-03 09:16] LABS: BASOPHILS # (AUTO) 0.06 x10^3/uL (0-0.1); BASOPHILS % (AUTO) 1 % (0-1); EOSINOPHILS # (AUTO) 0.07 x10^3/uL (0-0.4); EOSINOPHILS % (AUTO) 1 % (1-7); LYMPHOCYTES # (AUTO) 1.35 x10^3/uL (1-3.4); LYMPHOCYTES % (AUTO) 21 % (22-44); MD NO; MEAN CORPUSCULAR HEMOGLOBIN 29.7 pg (27.5-34.5); MEAN CORPUSCULAR VOLUME 87.3 fL (81-97); MEAN PLATELET VOLUME 8.1 fL (7.4-10.4); MONOCYTES # (AUTO) 0.43 x10^3/uL (0.2-0.8); MONOCYTES % (AUTO) 7 % (2-9); NEUTROPHILS # (AUTO) 4.43 x10^3/uL (1.8-6.8); NEUTROPHILS % (AUTO) 70 % (42-75); PLATELET COUNT 163 x10^3/uL (130-400); RED BLOOD COUNT 4.72 x10^6/uL (4.38-5.82); RED CELL DISTRIBUTION WIDTH 13.1 % (9.4-14.8)
[2019-01-03 09:26] LABS: ANION GAP 7 mmol/L (5-15); CALCIUM 8.2 mg/dL (8.5-10.1); CHLORIDE 102 mmol/L (98-107)
[2019-01-03 09:27] LABS: CREATININE 0.92 mg/dL (0.7-1.3)
[2019-01-03] MEDS ORDERED: POTASSIUM CHLORIDE 20 MEQ TAB.ER.PRT PO ONE (10:30)
[2019-01-03 14:39] VITALS: BP 116/71
[2019-01-03] MEDS: ENOXAPARIN 40 MG/0.4 ML SQ SCH (18:00)
[2019-01-03 19:41] VITALS: BP 111/68
[2019-01-04 02:03] VITALS: BP 132/85
[2019-01-04] MEDS: LEVOTHYROXINE 150 MCG TABLET PO SCH (05:39)
[2019-01-04 06:13] LABS: ANION GAP 5 mmol/L (5-15); CALCIUM 8.6 mg/dL (8.5-10.1); CHLORIDE 104 mmol/L (98-107); CREATININE 0.81 mg/dL (0.7-1.3)
[2019-01-04 07:11] VITALS: BP 116/73
[2019-01-04] MEDS ORDERED: POTASSIUM CHLORIDE 20 MEQ TAB.ER.PRT PO SCH (08:00)
[2019-01-04] MEDS: DEXAMETHASONE 4 MG TABLET PO SCH ×2 (08:24→17:25)
[2019-01-04] MEDS: LEVOFLOXACIN 750 MG TABLET PO SCH (08:24)
[2019-01-04] MEDS: morphine SULFATE 60 MG TABLET.ER PO SCH (08:25)
[2019-01-04] MEDS ORDERED: GABAPENTIN 300 MG CAPSULE PO PRN (08:30)
[2019-01-04] MEDS: DOCUSATE 100 MG CAPSULE PO SCH (09:18)
[2019-01-04 13:24] VITALS: BP 107/66
[2019-01-04 15:17] LABS: CHLORIDE,URINE RANDOM 29 mmol/L; POTASSIUM,URINE RANDOM 10 mmol/L; SODIUM,URINE RANDOM 35 mmol/L
[2019-01-04 15:47] LABS: OSMOLALITY,URINE 309 mOsm/kg (500-850)
[2019-01-04] MEDS ORDERED: LEVO750T26 PO (17:02)
[2019-01-04] MEDS ORDERED: POTA20TA6 PO (17:02)
[2019-01-04] MEDS ORDERED: LEVO150T PO (17:02)
[2019-01-04 17:09] VITALS: BP 133/87
[2019-01-04] MEDS ORDERED: GABA300C10 PO (17:35)
[2019-01-04] MEDS ORDERED: DEXA4TAB66 PO (17:35)
[2019-01-04] MEDS: ENOXAPARIN 40 MG/0.4 ML SQ SCH (18:00)
== END 2019-01-04 19:15 | disposition home or self-care (01) | DRG 871 ==
LOC: ED 15:06 → EDIP 16:01 → CCU 17:29 → 3NW 12-31 10:25
PROVIDERS: ADMIT Internal Medicine; ATTEND Internal Medicine
PROC: 02HV33Z Insertion of Infusion Device into Superior Vena Cava, Percutaneous Approach (ICD-10-PCS; principal; 2018-12-29)
PROC: B548ZZA Ultrasonography of Superior Vena Cava, Guidance (ICD-10-PCS; 2018-12-29)
DX: A41.9 Sepsis, unspecified organism (principal); J18.1 Lobar pneumonia, unspecified organism; J96.01 Acute respiratory failure with hypoxia; R65.21 Severe sepsis with septic shock; G35 Multiple sclerosis; E83.42 Hypomagnesemia; E87.6 Hypokalemia; E89.0 Postprocedural hypothyroidism; G89.3 Neoplasm related pain (acute) (chronic); K59.09 Other constipation; Z66 Do not resuscitate; Z85.850 Personal history of malignant neoplasm of thyroid; Z92.21 Personal history of antineoplastic chemotherapy; Z92.3 Personal history of irradiation
CPT/HCPCS: 36415; 36573; 71045; 80048; 80053; 80202; 81003; 81050; 82436; 82570; 83605; 83735; 83935; 84100; 84132; 84133; 84145; 84300; 84443; 85025; 87040; 87070; 87077; 87081; 87186; 87205; 93005; 93306; 96365; 96375; G0378; J1650; J2405; J2543; J3370; J3480; C1751; J1720; J2270; J3475; J7030; J7040; J7050

== ENCOUNTER → 2018-12-29 | Outpatient (CLI) | payer OTHER ==
[~2018-12-29] MED LIST changes: +AMOX1TAB64 PO; +CALCIUM PO; +DABR75CA PO; +DEXA4TAB66 PO; +IBUP-1221 PO; +MORP60CA17 PO; +OMNIPAQUE 350 MG/ML, 150 ML BOTTLE ONE; +OXYC5TAB3 PO
== END | disposition home or self-care (01) ==
LOC: CFH 07:38
PROVIDERS: ATTEND Internal Medicine Hematology & Oncology
DX: C73 Malignant neoplasm of thyroid gland (principal); J98.11 Atelectasis; M51.37 Other intervertebral disc degeneration, lumbosacral region
CPT/HCPCS: 70491; 71260; 74177; Q9967

== ENCOUNTER 2019-08-25 08:57 | Outpatient (CLI) | payer OTHER ==
[~2019-08-25 08:57] MED LIST changes: +CALCIUM PO; +DABR75CA PO; +DEXA4TAB66 PO; +GABA300C10 PO; +IBUP-1221 PO; +LEVO750T26 PO; +MORP60CA17 PO; +POTA20TA6 PO
[2019-08-25] MEDS ORDERED: GADOTERATE 10 MMOL/20 ML SYR ONE (13:35)
== END 2019-08-25 23:59 | disposition home or self-care (01) ==
LOC: CFH 08:57
PROVIDERS: ATTEND Internal Medicine Hematology & Oncology
DX: M19.012 Primary osteoarthritis, left shoulder (principal); M75.82 Other shoulder lesions, left shoulder; G89.3 Neoplasm related pain (acute) (chronic); Z85.850 Personal history of malignant neoplasm of thyroid
CPT/HCPCS: 70543; 71250; 73221; A9575

== ENCOUNTER → 2020-08-29 | Outpatient (CLI) | payer OTHER ==
[~2020-08-29] MED LIST changes: +GADOTERATE 10 MMOL/20 ML SYR ONE
== END | disposition home or self-care (01) ==
LOC: CFH 08:12
PROVIDERS: ATTEND Internal Medicine Hematology & Oncology
DX: C73 Malignant neoplasm of thyroid gland (principal); M50.30 Other cervical disc degeneration, unspecified cervical region; J34.89 Other specified disorders of nose and nasal sinuses; E89.0 Postprocedural hypothyroidism; N62 Hypertrophy of breast; J98.4 Other disorders of lung
CPT/HCPCS: 70543; 71250; A9575

== ENCOUNTER → 2021-02-26 | Outpatient (CLI) | payer OTHER ==
[~2021-02-26] MED LIST changes: -GADOTERATE 10 MMOL/20 ML SYR ONE; +HYDR-2214 PO; -HYDR-3240 PO; -OXYC5TAB3 PO; +OXYC5TAB98 PO
== END | disposition home or self-care (01) ==
LOC: CFH 13:25 → EDSTATUS 14:30
PROVIDERS: ATTEND Internal Medicine Hematology & Oncology
DX: C73 Malignant neoplasm of thyroid gland (principal); G89.3 Neoplasm related pain (acute) (chronic); J84.10 Pulmonary fibrosis, unspecified; N62 Hypertrophy of breast; J98.4 Other disorders of lung
CPT/HCPCS: 71250